=== PATIENT | female | born 1950 | race Caucasian/White ===

== ENCOUNTER 2018-06-15 21:11 | Emergency (ER) | payer MEDICARE, OTHER ==
[~2018-06-15] VITALS: Ht 167.6 cm; Wt 73.9 kg
[2018-06-15 21:55] VITALS: BP 150/73
== END 2018-06-16 00:40 | disposition left against medical advice (07) ==
LOC: MED 21:11
DX: L02.211 Cutaneous abscess of abdominal wall (principal); Z53.21 Procedure and treatment not carried out due to patient leaving prior to being seen by health care provider